=== PATIENT | male | born 1995 | race African-American/Black ===

== ENCOUNTER 2017-10-27 06:45 | Emergency (ER) | payer OTHER ==
[~2017-10-27] VITALS: Ht 190.5 cm; Wt 92.6 kg
[2017-10-27 06:51] VITALS: TEMP 36.5; Ht 190.5 cm; Wt 92.6 kg
--- NOTE | 2017-10-27 07:02 | EMERGENCY ROOM VISIT NOTE ---
History First contact with patient: 06:54 Chief Complaint: FOOT PAIN Stated Complaint: VERY STRONG RIGHT HEEL PAIN AFTER FALLING History of Present Illness The patient is a 22 year old male who presents to the Emergency Room via private vehicle with complaints of "very strong R heel pain after falling". The patient states that on Thursday he was playing basketball, and states that he landed on his right heel. He states he was wearing sneakers at the time but since then has had persistent pain in the right heel, it is worse with ambulation or weightbearing. He rates the overall pain as a 7/10. He denies any pain in the ankle, distal foot or diop. It is localized just to the base of the right heel. There is no numbness or tingling. Review of Systems A complete 6-point Review of Systems was discussed with the patient, with pertinent positives and negatives listed in the History of Present Illness. All remaining Review of Systems questions can be considered negative unless otherwise specified. Past Medical/Surgical History No pertinent. Family History Noncontributory. Social History Smoking Status: Never Smoker Patient lives locally. Current/Historical Medications No Active Prescriptions or Reported Meds Physical Exam Vital Signs Date Time Temp Pulse Resp B/P (MAP) Pulse Ox O2 Delivery O2 Flow Rate FiO2 10/27/17 06:51 36.5 65 18 143/78 100 Room Air Physical Exam VITAL SIGNS - Vital signs and nursing notes were reviewed. Stable. GENERAL -22-year-old male appearing his stated age who is in no acute distress. Communicates well with provider and answers questions appropriately. SKIN - Without rashes. Skin overlying the right heel is unremarkable. Integument is intact. EXTREMITIES - No clubbing or peripheral cyanosis. No pretibial edema present. There is minimal tenderness to palpation overlying the dependent portion of the right heel. There is no knee, diop, ankle or distal foot tenderness. It is localized to the base of the right heel. He is neurovascularly intact in this region. Medical Decision & Procedures ER Provider Diagnostic Interpretation: R FOOT MIN 3 VIEWS ROUTINE, R HEEL MIN 2 VIEWS CLINICAL HISTORY: 22 years-old Male presenting with BB INJURY. TECHNIQUE: Frontal, oblique, and lateral views of the right foot and frontal and lateral views of the right heel were obtained. COMPARISON: None. FINDINGS: Right foot: The anterior process of the calcaneus is not well visualized on lateral view, possibly due to positioning versus a coalition. No acute fracture or malalignment. No advanced degenerative change. No radiographic soft tissue abnormality. Right heel: No acute fracture or malalignment. No advanced degenerative change. No radiographic soft tissue abnormality. IMPRESSION: 1. No acute osseous injury of the right foot or right heel. Electronically signed by: Jaylan Latif M.D. 10/27/2017 7:18 AM Dictated Date/Time: 10/27/2017 7:16 AM Medical Decision Patient was seen and evaluated as above. He presents to us today with right heel pain. He is nontoxic on exam. Vital signs are stable. X-ray of foot and heel were obtained. There is no other areas of pain. Results as above. He declined pain medication and was given ice. X-ray does not reveal fracture. This was read by myself as well as the radiologist. He'll be placed in an Jean wrap for compression, and be nonweightbearing with crutches. He is to maintain a nonweightbearing status until pain-free, or if this persists he is to follow with family doctor or orthopedics. He was provided contact information for local orthopedic follow-up. He is to use [id number] ibuprofen for pain and ice the region. The patient was educated upon management, had questions answered prior to discharge, and was discharged home in good condition. In the evaluation and treatment of this patient the following differential diagnoses were entertained: Heel fracture, contusion, dislocation, sprain, among others. Impression Primary Impression: Heel pain Additional Impression: Contusion of foot Departure Information Dispostion Home / Self-Care Condition GOOD Prescriptions No Active Prescriptions or Reported Meds Referrals No Doctor, Assigned (PCP) Gregorio Lawrence D.O. Patient Instructions My [facility] Additional Instructions You have been treated in the Emergency Department for a r heel pain. For pain control, you can use the following [id number] medicines: - Regular strength (325mg/tab) Tylenol (acetaminophen) 2 tabs every 4-6 hours as needed. Do not exceed 12 tablets in a 24 hour period. Avoid taking more than 3 grams (3000 mg) of Tylenol per day. This includes any other sources of acetaminophen you may take on a regular basis. - Regular strength (200 mg/tab) Advil (ibuprofen) 1-2 tabs every 4-6 hours as needed. Do not exceed a dose of 3200 mg per day. If this is a recent injury (<24 hrs), ice can be applied to the area of pain for the first 3 days to help decrease pain and inflammation. I recommend following up with family doctor if pain persists or orthopedics ( Dr. Lawrence) Keep the heel elevated and do not bear weight until pain free. Use the crutches you have been provided to keep ALL weight off of the ankle until weight bearing is tolerable. Return to the Emergency Department if your current symptoms worsen despite treatment course outlined above, or if you develop any of the following symptoms : intractable pain despite aforementioned treatment course or new onset of numbness or tingling of the foot. Problem Qualifiers
--- NOTE | 2017-10-27 07:20 | DIAGNOSTIC IMAGING REPORT ---
R FOOT MIN 3 VIEWS ROUTINE, R HEEL MIN 2 VIEWS CLINICAL HISTORY: 22 years-old Male presenting with BB INJURY. TECHNIQUE: Frontal, oblique, and lateral views of the right foot and frontal and lateral views of the right heel were obtained. COMPARISON: None. FINDINGS: Right foot: The anterior process of the calcaneus is not well visualized on lateral view, possibly due to positioning versus a coalition. No acute fracture or malalignment. No advanced degenerative change. No radiographic soft tissue abnormality. Right heel: No acute fracture or malalignment. No advanced degenerative change. No radiographic soft tissue abnormality. IMPRESSION: 1. No acute osseous injury of the right foot or right heel. Electronically signed by: Jaylan Latif M.D. 10/27/2017 7:18 AM Dictated Date/Time: 10/27/2017 7:16 AM
[2017-10-27 07:50] VITALS: BP 142/70; PULSE 56; O2SAT 100
== END 2017-10-27 07:52 | disposition home or self-care (01) ==
LOC: C.EDB 06:47
DX: M79.671 Pain in right foot (principal); S90.31XA Contusion of right foot, initial encounter; X50.9XXA Other and unspecified overexertion or strenuous movements or postures, initial encounter; Y93.67 Activity, basketball